=== PATIENT | male | born 1995 | race Caucasian/White ===

== ENCOUNTER 2017-09-22 12:26 | Outpatient (CLI) | payer OTHER ==
[~2017-09-22] VITALS: Ht 167.6 cm; Wt 70.8 kg
== END 2017-09-22 14:26 | disposition home or self-care (01) ==
LOC: ECT 12:26
DX: F33.2 Major depressive disorder, recurrent severe without psychotic features (principal); F40.10 Social phobia, unspecified; F41.0 Panic disorder [episodic paroxysmal anxiety]; F31.81 Bipolar II disorder; I10 Essential (primary) hypertension

== ENCOUNTER 2017-10-08 07:44 | Outpatient (RCR) | payer OTHER ==
[~2017-10-08] VITALS: Ht 167.6 cm; Wt 70.8 kg
[2017-10-08] MEDS ORDERED: Ketorolac 60mg Inj ONE ×3 (07:45)
[2017-10-08] MEDS ORDERED: Ketorolac 60mg Inj IM ONE (07:45)
[2017-10-08] MEDS ORDERED: Ketamine 500mg Inj ONE ×3 (07:45)
[2017-10-08] MEDS ORDERED: Dexamethasone 4mg/ml vial ONE ×3 (07:45)
[2017-10-08] MEDS ORDERED: Ketamine HCl 100mg syr ONE (07:45)
[2017-10-08] MEDS ORDERED: Succinylcholine 20mg/ml 10ml vial ONE ×4 (07:45)
[2017-10-08] MEDS ORDERED: Metoclopramide 10mg/2ml Inj ONE ×2 (07:45)
[2017-10-08] MEDS ORDERED: Midazolam 2mg/2ml Inj ONE ×3 (07:45)
[2017-10-08] MEDS ORDERED: NS 500ML ONE ×3 (07:45)
[2017-10-08 10:52] VITALS: BP 150/87
[2017-10-08] MEDS ORDERED: Sodium Chloride 500ML 500 ML IV ONE (11:09)
[2017-10-08 11:10] VITALS: BP 157/79
[2017-10-08 11:15] VITALS: BP 161/90
[2017-10-08 11:20] VITALS: BP 158/78
[2017-10-08 11:25] VITALS: BP 145/62
[2017-10-09 06:15] VITALS: BP 150/87
[2017-10-10 07:32] VITALS: BP 136/74
[2017-10-10] MEDS ORDERED: Metoclopramide 10mg/2ml Inj IVP PRN (07:54)
[2017-10-10] MEDS ORDERED: Sodium Chloride 500ML 500 ML IV ONE (07:54)
[2017-10-10 07:55] VITALS: BP 126/82
[2017-10-10 08:00] VITALS: BP 136/60
[2017-10-10 08:05] VITALS: BP 127/59
[2017-10-10 08:10] VITALS: BP 126/57
[2017-10-10 08:15] VITALS: BP 123/49
[2017-10-13 10:38] VITALS: BP 136/79
[2017-10-13] MEDS ORDERED: Atropine Sulfate 0.4mg/ml inj IVP PRN (10:58)
[2017-10-13] MEDS ORDERED: Sodium Chloride 500ML 500 ML IV ONE (10:58)
[2017-10-13 11:00] VITALS: BP 170/84
[2017-10-13 11:05] VITALS: BP 159/90
[2017-10-13 11:10] VITALS: BP 144/85
[2017-10-13 11:15] VITALS: BP 151/69
[2017-10-15 08:06] VITALS: BP 140/71
[2017-10-15] MEDS ORDERED: Sodium Chloride 500ML 500 ML IV ONE (08:33)
[2017-10-15] MEDS ORDERED: Atropine Sulfate 0.4mg/ml inj IVP PRN (08:33)
[2017-10-15 08:35] VITALS: BP 139/57
[2017-10-15 08:40] VITALS: BP 138/59
[2017-10-15 08:45] VITALS: BP 133/54
[2017-10-15 08:50] VITALS: BP 124/49
== END 2017-11-07 | disposition home or self-care (01) ==
LOC: ECT 07:44
DX: F33.2 Major depressive disorder, recurrent severe without psychotic features (principal); F41.0 Panic disorder [episodic paroxysmal anxiety]; F41.8 Other specified anxiety disorders
CPT/HCPCS: 90870; J0330; J1100; J2250; J2405; J2765; J3490; J7040